=== PATIENT | male | born 1985 | race African-American/Black ===

== ENCOUNTER 2017-12-04 17:36 | Emergency (ER) | payer MEDICAID ==
[~2017-12-04] VITALS: Ht 185.4 cm; Wt 99.8 kg
[2017-12-04 17:46] VITALS: BP 123/82
[2017-12-04] MEDS ORDERED: Norco 5mg/325mg tab ORAL ONE (18:15)
[2017-12-04] MEDS ORDERED: Augmentin 875mg Tab ORAL ONE (18:15)
[2017-12-04] MEDS ORDERED: Lidocaine HCl 2% Jelly 5ml Tube TOPIC ONE (18:15)
[2017-12-04] MEDS ORDERED: Dyna-Hex 2% Top Sol 2oz TOPIC ONE (18:15)
--- NOTE | 2017-12-04 18:25 | Emergency Room Report ---
History of Present Illness General Chief Complaint: Toothache Source: Patient (Fransisco Arreaga) Present Illness HPI 32-year-old male patient presents ER complaining of tooth pain and infection past several days. Reports history of similar symptoms in the past, states that he has gotten dental abscess previously but never in this problem before. Reports pain in his left lower gum. Reports has not seen a dentist "a long while". reports mild drainage noted from infection in mouth. Denies fever, chest pain, shortness of breath. Denies sore throat. (Fransisco Arreaga) Allergies: Coded Allergies: No Known Allergies (Unverified , 12/04/17) Patient History Past Medical History: see triage record Reviewed Nursing Documentation: PMH: Agreed; PSxH: Agreed (Fransisco Arreaga) Nursing Documentation-PMH Past Medical History: No Stated History (Fransisco Arreaga) Review of Systems All Other Systems: negative except mentioned in HPI (Fransisco Arreaga) Physical Exam Vital Signs Date Time Temp Pulse Resp B/P (MAP) Pulse Ox O2 Delivery O2 Flow Rate FiO2 12/04/17 17:42 98.2 87 21 123/82 95 98.2 Sp02 EP Interpretation: reviewed, normal General Appearance: well appearing, no apparent distress, alert, GCS 15, non- toxic Head: normocephalic, atraumatic Eyes: bilateral eye normal inspection, bilateral eye PERRL ENT: hearing grossly normal, normal pharynx, no angioedema, normal voice, uvula midline, moist mucus membranes, other - left lower gum: two erythematous indurated abscesses, each approximately 1 cm in size, no active draining, TTP; multiple dental caries and broken teeth, missing teeth Neck: full range of motion Respiratory: lungs clear, normal breath sounds, no rhonchi, no respiratory distress, no accessory muscle use, no wheezing, speaking full sentences Cardiovascular #1: regular rate, rhythm, no edema Musculoskeletal: back normal, digits/nails normal, gait/station normal, normal range of motion, non-tender Neurologic: alert, oriented x3, responsive, motor strength/tone normal, sensory intact Psychiatric: mood/affect normal Skin: no rash (Fransisco Arreaga) Procedures Incision and Drainage Incision and Drainage : Consent: Verbal Site: mouth Blade Size: 11 Wound Location: other - left lower gum Wound's Depth, Shape: superficial Wound Length (cm): 1 Wound Explored: contaminated Anesthesia: other - topical lidocaine Volume Anesthetic (ccs): 1 Splint Applied?: No Sling Applied?: No Patient Tolerated: Well Complications: None (Fransisco Arreaga) Medical Decision Making PA Attestation Dr. Miles is my supervising Physician whom patient management has been discussed with. (Fransisco Arreaga) Diagnostic Impression: Primary Impression: Dental abscess ER Course Pt. presents to the ED c/o dental pain. Ddx considered but are not limited to cellulitis, abscess, dental caries, gingivitis. Does not require imaging at this time. Vital signs: are WNL, pt. is afebrile ED INTERVENTIONS: Pain medication provided in the ER. often in the ER, we will drive patient home. provide with first dose of antibiotics in the ER. Nontoxic appearing, speaking full sentences, no active draining, mild edema, no trismus or vision changes. Physical exam shows 2 abscesses, fluctuant, on left lower gum. will perform I& D in the ER. patient seen and evaluate by Dr. Miles, agrees with assessment and plan. Patient mouth washed with chlorhexidine. Topical lidocaine applied to affected area. Small incision made into each abscess with 11 blade, is expressed from each abscess. Patient tolerated procedure well without complications. Will discharge home with antibiotics and chlorhexidine mouthwash. Patient care instructions provided. follow-up with dentist. Will provide abx for infection to cover for possible infection. provided with contact information for dentists. F/u with PCP and dentist for further treatment. DISCHARGE: -Rx provided for Augmentin -Rx provided for Ravalli #10, CURES reviewed - Rx provided for chlorhexidine At this time pt. is stable for d/c to home. Patient is resting comfortably, in no acute distress, nontoxic appearing, talking and smiling without difficulty. Will provide printed patient care instructions and any necessary prescriptions. Care plan and follow up instructions have been discussed with the patient prior to discharge. Patient instructed to follow-up with primary care provider in 2 - 3 days. Followup with dentist. Patient questions asked and answered. Patient reports understanding and agreement to treatment plan. ER precautions given. Patient instructed to return to ER immediately for any new or worsening of symptoms including but not limited to fever, worsening of pain symptoms, worsening of erythema, red streaking. - Please note that this Emergency Department Report was dictated using [employer] technology software, occasionally this can lead to erroneous entry secondary to interpretation by the dictation equipment. (Fransisco Arreaga) ER Course Patient examined by me. I agree with evaluation and treatment plan. (Alejandro Miles M.D.) Last Vital Signs Date Time Temp Pulse Resp B/P (MAP) Pulse Ox O2 Delivery O2 Flow Rate FiO2 12/04/17 17:46 98.2 87 21 123/82 95 98.2 (Fransisco Arreaga) Disposition: HOME, SELF-CARE Condition: Stable Scripts Chlorhexidine Gluconate* (HIBICLENS*) 118 Ml Liquid 118 ML TP BID, #118 ML Prov: Fransisco Arreaga 12/04/17 Hydrocodone Bit/Acetaminophen 5-325* (NORCO 5-325*) 1 Each Tablet 1 TAB ORAL Q6H PRN for For Pain, #10 TAB 0 Refills Prov: Fransisco Arreaga 12/04/17 Amoxicillin/Potassium Clav 875-125* (AUGMENTIN 875-125 TABLET*) 1 Each Tablet 1 TAB ORAL TWICE A DAY for 7 Days, #20 TAB Prov: Fransisco Arreaga 12/04/17 Patient Instructions: Dental Abscess, [id number] Additional Instructions: Follow-up with dentist in 1-2 days. Wound check in 1-2 days. Followup with primary care provider in 3 -5 days. Take medications as directed. Do not take Ravalli prior to drinking, driving, operating heavy machinery. Patient questions asked and answered. ER precautions given, patient instructed to return to ER immediately for any new or worsening of symptoms. Fransisco Arreaga Dec 04, 2017 18:25 Alejandro Miles M.D. Dec 06, 2017 14:59
[2017-12-04] MEDS ORDERED: HIBICLENS118 ML TP (18:35)
[2017-12-04] MEDS ORDERED: AUGMENTIN 875-1 EAC1 ORAL (18:35)
[2017-12-04] MEDS ORDERED: NORCO 5-325 TA1 EACH ORAL (18:35)
[2017-12-04 19:27] VITALS: BP 122/71
[2017-12-04 19:29] VITALS: BP 122/71
== END 2017-12-04 19:30 | disposition home or self-care (01) ==
LOC: EMR 18:43
DX: K04.7 Periapical abscess without sinus (principal)
CPT/HCPCS: 10060; 99283; Z7502